=== PATIENT | male | born 1975 | race Two or more races ===

== ENCOUNTER 2024-01-26 09:19 | Emergency (ER) | payer MEDICAID ==
[~2024-01-26] VITALS: Ht 170.2 cm; Wt 127.0 kg
[2024-01-26 09:55] VITALS: PULSE 77; RESP 20; O2SAT 95
[2024-01-26] MEDS: ONDANSETRON HCL 4 MG/2 ML VIAL IM ONE (10:14)
[2024-01-26] MEDS: TETANUS-DIPTH-ACEL PERTUSSIS 0.5ML SYR Tdap IM ONE (10:19)
[2024-01-26] MEDS: MORPHINE SULFATE INJ 2 MG/ml SYRG IM ONE (10:21)
[2024-01-26 11:28] VITALS: BP 142/79; PULSE 92; RESP 16; TEMP 98.2; O2SAT 98
== END 2024-01-26 11:56 | disposition short-term general hospital (02) ==
LOC: ER 09:19 → EDBD 09:19 → ER 11:56
DX: S62.615A Displaced fracture of proximal phalanx of left ring finger, initial encounter for closed fracture (principal); S62.607A Fracture of unspecified phalanx of left little finger, initial encounter for closed fracture; S61.213A Laceration without foreign body of left middle finger without damage to nail, initial encounter; V89.2XXA Person injured in unspecified motor-vehicle accident, traffic, initial encounter; Y93.I9 Activity, other involving external motion; Y92.89 Other specified places as the place of occurrence of the external cause; Y99.8 Other external cause status
CPT/HCPCS: 73130; 90471; 90715; 96372; 99285; J2270; J2405